=== PATIENT | male | born 1990 | race American Indian/Alaskan Native ===

== ENCOUNTER 2019-05-31 02:04 | Emergency (ER) | payer MEDICAID, OTHER ==
--- NOTE | 2019-05-31 05:54 | Emergency Department Report ---
- General Chief complaint: Skin/Abscess/Foreign Body Stated complaint: INSECT BITE Time Seen by Provider: 05/31/19 05:47 Source: patient Mode of arrival: Ambulatory Limitations: No Limitations - History of Present Illness Initial comments: The patient is a 29-year-old -[place] male who presents for insect bite to left posterior there is mild erythema and irritation no drainage no fever no nausea vomiting there is no focal abscess MD complaint: rash, insect bite/sting Onset/Timin -: hour(s), days(s) Time: 04:00 Tetanus Up to Date: yes Location: LLE Severity: moderate Severity scale (0 -10): 5 Quality: burning, other (itching) Consistency: constant Improves with: none Worsens with: none Context: none Associated symptoms: itching Treatments Prior to Arrival: none - Related Data Previous Rx's Medication Instructions Recorded Last Taken Type cephALEXin [Keflex] 500 mg PO TID #9 capsule 01/09/15 Unknown Rx oxyCODONE /ACETAMINOPHEN [Percocet 1 tab PO Q6HR PRN #10 tablet 01/09/15 Unknown Rx 5/325] Ibuprofen [Motrin 800 MG tab] 800 mg PO Q8HR PRN #30 tablet 05/31/19 Unknown Rx cephALEXin [Keflex] 500 mg PO Q8H 30 Days #30 capsule 05/31/19 Unknown Rx Allergies Allergy/AdvReac Type Severity Reaction Status Date / Time No Known Allergies Allergy Verified 01/09/15 13:33 Abscess Boil HPI - HPI Chief Complaint: Skin/Abscess/Foreign Body Stated Complaint: INSECT BITE Time Seen by Provider: 05/31/19 05:47 Home Medications: Previous Rx's Medication Instructions Recorded Last Taken Type cephALEXin [Keflex] 500 mg PO TID #9 capsule 01/09/15 Unknown Rx oxyCODONE /ACETAMINOPHEN [Percocet 1 tab PO Q6HR PRN #10 tablet 01/09/15 Unknown Rx 5/325] Ibuprofen [Motrin 800 MG tab] 800 mg PO Q8HR PRN #30 tablet 05/31/19 Unknown Rx cephALEXin [Keflex] 500 mg PO Q8H 30 Days #30 capsule 05/31/19 Unknown Rx Allergies/Adverse Reactions: Allergies Allergy/AdvReac Type Severity Reaction Status Date / Time No Known Allergies Allergy Verified 01/09/15 13:33 ED Review of Systems ROS: Stated complaint: INSECT BITE Other details as noted in HPI Constitutional: denies: chills, fever Eyes: denies: eye pain, eye discharge, vision change ENT: denies: ear pain, throat pain Respiratory: denies: cough, shortness of breath, wheezing Cardiovascular: as per HPI Endocrine: no symptoms reported Gastrointestinal: denies: abdominal pain, nausea, diarrhea Genitourinary: denies: urgency, dysuria Musculoskeletal: back pain Skin: rash, lesions Neurological: denies: headache, weakness, paresthesias Psychiatric: denies: anxiety, depression Hematological/Lymphatic: denies: easy bleeding, easy bruising ED Past Medical Hx - Past Medical History Previous Medical History?: Yes Hx Seizures: Yes Additional medical history: congenital heart block - Surgical History Past Surgical History?: Yes Hx Pacemaker: Yes - Social History Smoking Status: Former Smoker Substance Use Type: None - Medications Home Medications: Home Medications Medication Instructions Recorded Confirmed Last Taken Type cephALEXin [Keflex] 500 mg PO TID #9 capsule 01/09/15 Unknown Rx oxyCODONE /ACETAMINOPHEN [Percocet 1 tab PO Q6HR PRN #10 tablet 01/09/15 Unknown Rx 5/325] Ibuprofen [Motrin 800 MG tab] 800 mg PO Q8HR PRN #30 tablet 05/31/19 Unknown Rx cephALEXin [Keflex] 500 mg PO Q8H 30 Days #30 capsule 05/31/19 Unknown Rx ED Physical Exam - General Limitations: No Limitations General appearance: alert, in no apparent distress - Head Head exam: Present: atraumatic, normocephalic, normal inspection - Eye Eye exam: Present: normal appearance, PERRL, EOMI Pupils: Present: normal accommodation - ENT ENT exam: Present: normal exam, mucous membranes dry, mucous membranes moist, TM's normal bilaterally - Neck Neck exam: Present: normal inspection, full ROM. Absent: tenderness, l ymphadenopathy - Respiratory Respiratory exam: Present: normal lung sounds bilaterally. Absent: respiratory distress, wheezes, rhonchi, chest wall tenderness, decreased breath sounds - Cardiovascular Cardiovascular Exam: Present: regular rate, normal rhythm, normal heart sounds. Absent: systolic murmur, diastolic murmur, rubs, gallop - GI/Abdominal GI/Abdominal exam: Present: soft, other. Absent: distended, tenderness, guarding, rebound, rigid, normal bowel sounds, mass, bruit - Rectal Rectal exam: Present: deferred - exam: Present: other (deferred) - Extremities Exam Extremities exam: Present: normal inspection, full ROM, normal capillary refill. Absent: tenderness - Back Exam Back exam: Present: normal inspection, full ROM. Absent: tenderness, CVA tenderness (R), CVA tenderness (L), rash noted - Neurological Exam Neurological exam: Present: alert, oriented X3, CN II-XII intact, normal gait, motor sensory deficit, reflexes normal - Psychiatric Psychiatric exam: Present: normal affect, normal mood - Skin Skin exam: Present: warm, dry, intact, normal color. Absent: rash ED Course Vital Signs 05/31/19 02:08 Temperature 97.9 F Pulse Rate 60 Respiratory 16 Rate Blood Pressure 127/77 O2 Sat by Pulse 98 Oximetry ED Medical Decision Making - Medical Decision Making this is an infected insect bite plan: keflex , ultram pt will follow up with [facility] ni2-3 days for wound check , pt verbalized agreement and understanding of discharge plan. Critical care attestation.: If time is entered above; I have spent that time in minutes in the direct care of this critically ill patient, excluding procedure time. ED Disposition Clinical Impression: Infected insect bite Qualifiers: Encounter type: sequela Qualified Code(s): W57.XXXS - Bitten or stung by nonvenomous insect and other nonvenomous arthropods, sequela Disposition: DC-01 TO HOME OR SELFCARE Is pt being admited?: No Does the pt Need Aspirin: No Condition: Stable Instructions: Insect Bite or Sting (ED) Prescriptions: cephALEXin [Keflex] 500 mg PO Q8H 30 Days #30 capsule Ibuprofen [Motrin 800 MG tab] 800 mg PO Q8HR PRN #30 tablet PRN Reason: Pain , Severe (7-10) Referrals: [facility] [Outside] - 3-5 Days Forms: Work/School Release Form(ED) Time of Disposition: 06:18
[2019-05-31 06:25] VITALS: BP 122/76
== END 2019-05-31 06:25 | disposition home or self-care (01) ==
LOC: ED 02:04
DX: S71.152A Open bite, left thigh, initial encounter (principal); Z95.0 Presence of cardiac pacemaker; Z87.891 Personal history of nicotine dependence; Z79.899 Other long term (current) drug therapy; W57.XXXA Bitten or stung by nonvenomous insect and other nonvenomous arthropods, initial encounter; Y93.89 Activity, other specified; Y92.89 Other specified places as the place of occurrence of the external cause; Y99.8 Other external cause status
CPT/HCPCS: 99282

== ENCOUNTER 2020-05-12 10:00 | Emergency (ER) | payer MEDICAID ==
[2020-05-12 10:08] VITALS: BP 141/70
--- NOTE | 2020-05-12 12:02 | Emergency Department Report ---
ED General Adult HPI - General Chief complaint: Medical Clearance Stated complaint: HERNIA PAIN Time Seen by Provider: 05/12/20 11:25 Source: patient Mode of arrival: Ambulatory Limitations: No Limitations - History of Present Illness Initial comments: Patient is a 30-year-old male presents emergency room with complaints of concern for having a hernia for a couple of months. He states he has been doing some increased lifting lately. He has not seen anyone for this. He denies any pain. He denies any nausea, vomiting, diarrhea. He is tolerating p.o. intake without difficulty. He states he had a normal bowel movement this morning. He has a past medical history of a pacemaker due to a congenital heart block at . No allergies to medications. - Related Data Previous Rx's Medication Instructions Recorded Last Taken Type cephALEXin [Keflex] 500 mg PO TID #9 capsule 01/09/15 Unknown Rx oxyCODONE /ACETAMINOPHEN [Percocet 1 tab PO Q6HR PRN #10 tablet 01/09/15 Unknown Rx 5/325] Ibuprofen [Motrin 800 MG tab] 800 mg PO Q8HR PRN #30 tablet 05/31/19 Unknown Rx cephALEXin [Keflex] 500 mg PO Q8H 30 Days #30 capsule 05/31/19 Unknown Rx Allergies Allergy/AdvReac Type Severity Reaction Status Date / Time No Known Allergies Allergy Verified 01/09/15 13:33 ED Review of Systems ROS: Stated complaint: HERNIA PAIN Other details as noted in HPI Comment: All other systems reviewed and negative ED Past Medical Hx - Past Medical History Previous Medical History?: No Hx Seizures: Yes Additional medical history: congenital heart block - Surgical History Hx Pacemaker: Yes - Social History Smoking Status: Never Smoker - Medications Home Medications: Home Medications Medication Instructions Recorded Confirmed Last Taken Type cephALEXin [Keflex] 500 mg PO TID #9 capsule 01/09/15 Unknown Rx oxyCODONE /ACETAMINOPHEN [Percocet 1 tab PO Q6HR PRN #10 tablet 01/09/15 Unknown Rx 5/325] Ibuprofen [Motrin 800 MG tab] 800 mg PO Q8HR PRN #30 tablet 05/31/19 Unknown Rx cephALEXin [Keflex] 500 mg PO Q8H 30 Days #30 capsule 05/31/19 Unknown Rx ED Physical Exam - General Limitations: No Limitations General appearance: alert, in no apparent distress - Head Head exam: Present: atraumatic, normocephalic - Eye Eye exam: Present: normal appearance - ENT ENT exam: Present: mucous membranes moist - Respiratory Respiratory exam: Absent: respiratory distress, accessory muscle use - GI/Abdominal GI/Abdominal exam: Present: soft, normal bowel sounds. 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, no palpable hernia present to the bilateral inguinal region, no ttp to the bilateral testicles, no scrotal edema, normal testicular lie, normal cremasteric reflex) - Neurological Exam Neurological exam: Present: alert, oriented X3 - Psychiatric Psychiatric exam: Present: normal affect, normal mood - Skin Skin exam: Present: warm, dry, intact ED Course Vital Signs 05/12/20 10:04 Temperature 98.3 F Pulse Rate 82 Respiratory 16 Rate Blood Pressure 141/70 O2 Sat by Pulse 99 Oximetry ED Medical Decision Making - Medical Decision Making Patient is a 30-year-old male presents emergency room with complaints of concern for having a hernia for a couple of months. He states he has been doing some increased lifting lately. He has not seen anyone for this. He denies any pain. He denies any nausea, vomiting, diarrhea. He is tolerating p.o. intake without difficulty. He states he had a normal bowel movement this morning. He has a past medical history of a pacemaker due to a congenital heart block at . No allergies to medications. vss. on exam: accounting officer: karina serranoedic, no palpable hernia present to the bilateral inguinal region, no ttp to the bilateral testicles, no scrotal edema, normal testicular lie, normal cremasteric reflex, no signs of significant inguinal or abdominal wall hernia at this time. Patient denies any pain. He is not having any obstructive symptoms. Advised patient Please follow-up with a primary care doctor. Please return to the emergency for any new or worsening symptoms including but not limited to if you see a lump form and it is unable to be pressed back in, if you have severe pain, if you have nausea vomiting and you are not able to keep anything down, if you are not able to have a bowel movement or pass gas, etc. Medical screening exam performed and there is no threat to life or limb at this time Critical care attestation.: If time is entered above; I have spent that time in minutes in the direct care of this critically ill patient, excluding procedure time. ED Disposition Clinical Impression: Encounter for medical screening examination Disposition: MED SCREENING EXAM-LEFT Is pt being admited?: No Does the pt Need Aspirin: No Condition: Stable Additional Instructions: Please follow-up with a primary care doctor. Please return to the emergency for any new or worsening symptoms including but not limited to if you see a lump form and it is unable to be pressed back in, if you have severe pain, if you have nausea vomiting and you are not able to keep anything down, if you are not able to have a bowel movement or pass gas, etc. Referrals: PAUL GRACE MD [Staff Physician] - 2-3 Days [facility] [Provider Group] - 2-3 Days [facility] [Outside] - 2-3 Days Time of Disposition: 12:01 Print Language: KAZAKH
== END 2020-05-12 12:35 | disposition left against medical advice (07) ==
LOC: ED 10:00
DX: K46.9 Unspecified abdominal hernia without obstruction or gangrene (principal); Z53.21 Procedure and treatment not carried out due to patient leaving prior to being seen by health care provider; Z00.00 Encounter for general adult medical examination without abnormal findings

== ENCOUNTER 2020-09-21 02:03 | Emergency (ER) | payer MEDICAID ==
--- NOTE | 2020-09-21 02:48 | XRay Report ---
XR chest 1V ap INDICATION / CLINICAL INFORMATION: Chest Pain COMPARISON: None available. FINDINGS: SUPPORT DEVICES: Left transvenous pacemaker. 2 leads overlie the right atrial appendage. HEART / MEDIASTINUM: Mildly enlarged cardiac silhouette. LUNGS / PLEURA: Lungs are clear. Costophrenic sulci are sharp. No pneumothorax. ADDITIONAL FINDINGS: No significant additional findings. IMPRESSION: 1. No acute findings. Signer Name: Suleiman Ruiz MD Signed: 09/21/2020 2:43 AM Workstation Name: [id number]
--- NOTE | 2020-09-21 02:54 | Emergency Department Report ---
ED Palpitations HPI - General Chief Complaint: Arrhythmia/Palpitations Stated Complaint: PACE MAKER Time Seen by Provider: 09/21/20 02:43 Source: patient Mode of arrival: Ambulatory Limitations: No Limitations - History of Present Illness Initial Comments: Patient is a 30-year-old male that presents emergency room with complaints of his defibrillator going off after taking 2 acid pills. Patient states that he is having palpations and he can feel his pacemaker working after taking the acid pills. Patient states he has a pacemaker placed from a congenital heart condition. Patient states he does not know the name of his pacemaker and he does not see a shark biologist. Patient states he does not have a primary care. Patient denies shortness of breath. Patient denies pain. Patient states he does not know what was in the acid pills. Patient denies chest pain. Patient denies any pain patient states he is only having palpitation. Patient denies recent travel. Patient denies recent international travel. Patient denies exposure to the novel coronavirus. Patient denies sick contacts. Patient denies fever and chills. Patient denies cough. Patient denies diarrhea. Patient denies coming in contact with anybody with symptoms of the no igor coronavirus. MD Complaint: rapid heart beat, "heart racing", palpitations -: Sudden Context: recent drug use Arrythmia History: pacemaker Associated Symptoms: anxiety. denies: chest pain, shortness of breath, syncope, near-syncope, nausea/vomiting, diaphoresis, cough, parasthesias, feeling of impending doom, muscle cramps - Related Data Previous Rx's Medication Instructions Recorded Last Taken Type cephALEXin [Keflex] 500 mg PO TID #9 capsule 01/09/15 Unknown Rx oxyCODONE /ACETAMINOPHEN [Percocet 1 tab PO Q6HR PRN #10 tablet 01/09/15 Unknown Rx 5/325] Ibuprofen [Motrin 800 MG tab] 800 mg PO Q8HR PRN #30 tablet 05/31/19 Unknown Rx cephALEXin [Keflex] 500 mg PO Q8H 30 Days #30 capsule 05/31/19 Unknown Rx Allergies Allergy/AdvReac Type Severity Reaction Status Date / Time No Known Allergies Allergy Verified 01/09/15 13:33 ED Review of Systems ROS: Stated complaint: PACE MAKER Other details as noted in HPI Constitutional: denies: chills, fever Eyes: denies: eye pain, eye discharge, vision change ENT: denies: ear pain, throat pain Respiratory: denies: cough, shortness of breath, wheezing Cardiovascular: as per HPI, palpitations. denies: chest pain Endocrine: no symptoms reported Gastrointestinal: denies: abdominal pain, nausea, diarrhea Genitourinary: denies: urgency, dysuria Musculoskeletal: denies: back pain, joint swelling, arthralgia Skin: denies: rash, lesions Neurological: denies: headache, weakness, paresthesias Psychiatric: anxiety. denies: depression Hematological/Lymphatic: denies: easy bleeding, easy bruising ED Past Medical Hx - Past Medical History Previous Medical History?: Yes Hx Seizures: Yes Additional medical history: congenital heart block - Surgical History Past Surgical History?: Yes Hx Pacemaker: Yes Hx Internal Defibrillator: No - Family History Family history: no significant - Social History Smoking Status: Current Every Day Smoker Substance Use Type: Marijuana, Other - Medications Home Medications: Home Medications Medication Instructions Recorded Confirmed Last Taken Type cephALEXin [Keflex] 500 mg PO TID #9 capsule 01/09/15 Unknown Rx oxyCODONE /ACETAMINOPHEN [Percocet 1 tab PO Q6HR PRN #10 tablet 01/09/15 Unknown Rx 5/325] Ibuprofen [Motrin 800 MG tab] 800 mg PO Q8HR PRN #30 tablet 05/31/19 Unknown Rx cephALEXin [Keflex] 500 mg PO Q8H 30 Days #30 capsule 05/31/19 Unknown Rx ED Physical Exam - General Limitations: No Limitations General appearance: alert, in no apparent distress - Head Head exam: Present: atraumatic, normocephalic - Eye Eye exam: Present: normal appearance - ENT ENT exam: Present: mucous membranes moist - Neck Neck exam: Present: normal inspection - Respiratory Respiratory exam: Present: normal lung sounds bilaterally, other (Left upper chest pacemaker noted.). Absent: respiratory distress, chest wall tenderness - Cardiovascular Cardiovascular Exam: Present: regular rate, normal rhythm. Absent: systolic m urmur, diastolic murmur, rubs, gallop - GI/Abdominal GI/Abdominal exam: Present: soft, normal bowel sounds - Rectal Rectal exam: Present: deferred - Extremities Exam Extremities exam: Present: normal inspection - Back Exam Back exam: Present: normal inspection - Neurological Exam Neurological exam: Present: alert, oriented X3 - Psychiatric Psychiatric exam: Present: normal affect, normal mood - Skin Skin exam: Present: warm, dry, intact, normal color. Absent: rash ED Course Vital Signs 09/21/20 02:28 Temperature 97.8 F Pulse Rate 76 Respiratory 20 Rate Blood Pressure 152/81 [Left] O2 Sat by Pulse 100 Oximetry - Reevaluation(s) Reevaluation #1: Patient receiving fluids. Patient states he is feeling much better. Patient states the palpitations have resolved. 09/21/20 05:05 Reevaluation #2: I discussed all results and clinical findings with patient. I discussed plan of care with patient. Patient agrees with plan of care. Patient is stable for discharge. Patient will be discharged home. Patient given discharge instructions. Patient voiced understanding of discharge instructions. 09/21/20 05:20 ED Medical Decision Making - Lab Data Result diagrams: 09/21/20 02:42 09/21/20 02:42 - EKG Data -: EKG Interpreted by Me EKG shows normal: sinus rhythm, axis, intervals, ST-T waves Rate: normal - EKG Data Interpretation: other (Prolonged QRS and paced rhythm) - Radiology Data Radiology results: report reviewed, image reviewed XR chest 1V ap INDICATION / CLINICAL INFORMATION: Chest Pain COMPARISON: None available. FINDINGS: SUPPORT DEVICES: Left transvenous pacemaker. 2 leads overlie the right atrial appendage. HEART / MEDIASTINUM: Mildly enlarged cardiac silhouette. LUNGS / PLEURA: Lungs are clear. Costophrenic sulci are sharp. No pneumothorax. ADDITIONAL FINDINGS: No significant additional findings. IMPRESSION: 1. No acute findings. - Medical Decision Making Patient is a 30-year-old male that presents emergency room with complaints of palpitations and feeling his pacemaker beat after taking 2 hits of acid. Patient states he was told that what it was but was not sure. Patient had labs done which were essentially markable except for renal insufficiency and dehydration. Patient given fluids. Patient symptoms resolved after being given fluids. Patient better after treatment. Patient responded well to treatment. Patient had an EKG done which shows a paced rhythm. Patient had a chest x-ray which was negative for acute findings. Patient is stable for discharge. Jeovany webb discharged home. - Differential Diagnosis Drug use, drug reaction, palpitations, dehydration, Critical care attestation.: If time is entered above; I have spent that time in minutes in the direct care of this critically ill patient, excluding procedure time. ED Disposition Clinical Impression: Heart palpitations, Drug use, Dehydration, Renal insufficiency Drug reaction Qualifiers: Encounter type: initial encounter Qualified Code(s): T50.905A - Adverse effect of unspecified drugs, medicaments and biological substances, initial encounter Disposition: TO HOME OR SELFCARE Is pt being admited?: No Does the pt Need Aspirin: No Condition: Stable Instructions: Palpitations, Dehydration, Adult, [id number] Additional Instructions: Patient to follow-up with primary care in 2 to 3 days. Patient to follow-up with cardiology in 2 to 3 days. Patient to rest. Patient to increase water. Patient to avoid strenuous exercise or heavy lifting until cleared by ca rdiology. Patient to take Tylenol as needed for pain. Patient to avoid drug use. Patient to avoid alcohol use. Patient to return to the ER if condition worsens, changes or new symptoms arise. Referrals: PRIMARY MD DB [Primary Care Provider] - 2-3 Days RAJNI LOZADA MD [Staff Physician] - 2-3 Days Time of Disposition: 05:22
[2020-09-21 02:56] LABS: Basophils # (Auto) 0.1 K/mm3 (0.0-0.1); Eosinophils # (Auto) 0.1 K/mm3 (0.0-0.4); Eosinophils % (Auto) 0.7 % (0.0-4.3); Hematocrit 42.9 % (35.5-45.6); Hemoglobin 14.6 gm/dl (11.8-15.2); Lymphocytes # (Auto) 1.8 K/mm3 (1.2-5.4); Mean Corpuscular HGB Conc 34 % (32-34); Mean Corpuscular Volume 96 fl (84-94); Monocytes # (Auto) 0.6 K/mm3 (0.0-0.8); Platelet Count 216 K/mm3 (140-440); Red Blood Count 4.49 M/mm3 (3.65-5.03); Red Cell Distribution Width 13.5 % (13.2-15.2)
[2020-09-21 03:16] LABS: BUN/Creatinine Ratio 16; Blood Urea Nitrogen 23 mg/dL (9-20); Calcium 9.2 mg/dL (8.4-10.2); Hemolysis Index 6
[2020-09-21 03:43] LABS: Bilirubin,Urine NEG (Negative); Blood,Urine NEG (Negative); Color,Urine Yellow (Yellow); Mucus,Urine FEW /HPF; Protein,Urine <15 mg/dL mg/dL (Negative); Urobilinogen,Urine < 2.0 mg/dL (<2.0)
[2020-09-21 03:45] LABS: RBC,Urine < 1.0 /HPF (0.0-6.0)
[2020-09-21 03:50] LABS: Amphetamine Screen,Urine Negative; Benzodiazepines Screen,Urine Negative; Cocaine Screen,Urine Negative; Methadone Screen,Urine Negative; Opiate Screen,Urine Negative
[2020-09-21 04:02] LABS: Cannabinoid Screen,Urine Positive
[2020-09-21] MEDS ORDERED: SODIUM CHLORIDE 0.9% 1000 ML 1,000 ML IV ONE (04:04)
[2020-09-21 05:17] VITALS: BP 137/89
== END 2020-09-21 05:50 | disposition home or self-care (01) ==
LOC: ED 02:03
DX: R00.2 Palpitations (principal); T50.905A Adverse effect of unspecified drugs, medicaments and biological substances, initial encounter; N28.9 Disorder of kidney and ureter, unspecified; E86.0 Dehydration; R56.9 Unspecified convulsions; F17.200 Nicotine dependence, unspecified, uncomplicated; Z98.890 Other specified postprocedural states; Z79.1 Long term (current) use of non-steroidal anti-inflammatories (NSAID); Z79.899 Other long term (current) drug therapy; Y92.89 Other specified places as the place of occurrence of the external cause
CPT/HCPCS: 36415; 71045; 80048; 80307; 81001; 84484; 85025; 93005; 96360; 99284; J7030

== ENCOUNTER 2021-10-16 10:52 | Emergency (ER) | payer MEDICAID ==
[2021-10-16 11:21] VITALS: BP 130/80
--- NOTE | 2021-10-16 11:21 | Emergency Department Report ---
ED Male HPI - General Stated complaint: POSS STD Time Seen by Provider: 10/16/21 11:19 Source: patient Mode of arrival: Ambulatory Limitations: No Limitations - History of Present Illness Initial comments: 31-year-old -[place] male presents to the ER today with concern for possible exposure to trichomonas. Patient admits that he has 2 sexual partners currently. He states that one of them recently informed him yesterday that she was positive for trichomonas and so he came here to get checked out. He states that he is not having any symptoms. MD Complaint: other (Trichomonas exposure) -: days(s) - Related Data Previous Rx's Medication Instructions Recorded Last Taken Type metroNIDAZOLE [Flagyl] 500 mg PO Q12HR #14 tab 10/16/21 Unknown Rx Allergies Allergy/AdvReac Type Severity Reaction Status Date / Time No Known Allergies Allergy Verified 01/09/15 13:33 ED Review of Systems ROS: Stated complaint: POSS STD Other details as noted in HPI Comment: All other systems reviewed and negative Gastrointestinal: denies: abdominal pain, nausea, diarrhea Genitourinary: denies: urgency, dysuria, frequency, hematuria, discharge, testicular pain, testicular mass Skin: denies: rash, lesions ED Past Medical Hx - Past Medical History Hx Seizures: Yes Additional medical history: congenital heart block - Surgical History Hx Pacemaker: Yes Hx Internal Defibrillator: No - Social History Smoking Status: Current Every Day Smoker Substance Use Type: Marijuana, Other - Medications Home Medications: Home Medications Medication Instructions Recorded Confirmed Last Taken Type metroNIDAZOLE [Flagyl] 500 mg PO Q12HR #14 tab 10/16/21 Unknown Rx ED Physical Exam - General General appearance: alert, in no apparent distress - Respiratory Respiratory exam: Absent: respiratory distress - Cardiovascular Cardiovascular Exam: Present: regular rate - Neurological Exam Neurological exam: Present: alert, oriented X3, CN II-XII intact, normal gait - Psychiatric Psychiatric exam: Present: normal affect, normal mood - Skin Skin exam: Present: intact ED Course Vital Signs 10/16/21 11:16 Temperature 97.6 F Pulse Rate 82 Respiratory 18 Rate Blood Pressure 130/80 [Right] O2 Sat by Pulse 97 Oximetry Critical care attestation.: If time is entered above; I have spent that time in minutes in the direct care of this critically ill patient, excluding procedure time. ED Disposition Clinical Impression: Trichomonas exposure Disposition: 01 HOME / SELF CARE / HOMELESS Is pt being admited?: No Does the pt Need Aspirin: No Condition: Stable Instructions: Trichomoniasis, Safe Sex Additional Instructions: Take the flagyl as prescribed. Do not drink alcohol while taking the flagyl. Make sure you complete all the antibiotic. Follow up with PCP as needed. REturn if worse. Prescriptions: metroNIDAZOLE [Flagyl] 500 mg PO Q12HR #14 tab Referrals: [facility] [Provider Group] - 3-5 Days Time of Disposition: 11:28
== END 2021-10-16 11:55 | disposition home or self-care (01) ==
LOC: ED 10:52
DX: Z20.2 Contact with and (suspected) exposure to infections with a predominantly sexual mode of transmission (principal); R56.9 Unspecified convulsions; F17.200 Nicotine dependence, unspecified, uncomplicated; Z98.890 Other specified postprocedural states; Z79.899 Other long term (current) drug therapy
CPT/HCPCS: 99282